=== PATIENT | male | born 1970 | race Caucasian/White ===

== ENCOUNTER 2023-10-15 12:32 | Inpatient (IN) ==
--- NOTE | 2023-10-15 13:15 | Emergency Department Note ---
Impression & Plan Suicidal ideation, Alcohol intoxication ED Provider Note Name: BERTA MCLAUGHLIN Age: 53 Sex: Male Arrives Via: Walk-In Informant: Patient, state police ED Provider: Brock Sagastume MD Chief Complaint: Suicidal ideation Impression: As per impressions above Medical Decision Makin-year-old gentleman arrives for evaluation of suicidal ideation. Patient without history of suicidal ideation nor significant depression. He does note that he has been on anxiety meds for some time. No previous mental health evaluations. Decided last night to kill himself due to trouble with his job. Per police there was a smell of alcohol in the car but they felt he was relatively sober. On my evaluation patient appears very sober he is awake alert oriented other than a bit of a noncongruent mood for his statements. Medical workup does reveal a significantly elevated alcohol at 300. Patient is stating he did drink since last night though I suspect he is not being fully truthful about that. Other electrolytes are unremarkable. LFTs look good. He is adamant he has not attempted to harm self. Medically other than being intoxicated he is clear. Patient is otherwise breathing comfortably no distress and stable throughout stay. Signed out to Dr Olivarez pending medical clearance and mental health evaluation. Triage/Nursing Notes reviewed by Me Differential:Mood disorder, infection, hypoglycemia, electrolyte abnormalities, cardiac sources, intracerebral event, toxicologic, trauma, neurologic, as well as other pathologies. Vital Signs: reviewed and remarkable for no significant abnormalities Labs:ED labs Reviewed by me and remarkable for +etoh Consults:Mental Health Case Management: They agree that given patient's statement there is high concern for suicide risk however given his intoxication will need to continue monitoring in ER until he is fully sober and repeat evaluation can be done Plan: Disposition: Signed out to Dr Olivarez. Condition: Good History of Present Illness: 53-year-old male arrives for evaluation of suicidal ideation. Patient states that he plans to kill himself. 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 He states he started a new job about 3 months ago and has become increasingly depressed since then. He admits that over the last few weeks he has been drinking more alcohol but no overt withdrawal symptoms nor is he had an alcohol in the last 24 hours. Last evening he told his and child that he plans to kill himself. He got in the car and drove off. States he was driving through the evening until this morning when [facility] police pulled him over. Apparently they had noted his license plate was that of a missing person. Patient admitted to police he is planning on killing himself. Patient states he is on his way to [place] to say goodbye to his parents and brother before he tells himself. He states he does not have a plan quite yet. He states he is never thought of harming himself before. Denies any significant depression issues previously but has been dealing with anxiety over the last few years. Had been placed on Zoloft a few years ago but does not feel it really helps much thus I do increase the dose a bit 12 months ago without much improvement either. Patient denies any drug use. Has not been taking any supplements. He takes no other medications on a daily basis besides the Zoloft. He has no recent headache head injuries or falls. He is not having any other medical complaints denying any chest pain shortness of breath or any other concerning signs or symptoms. Past Medical History:anxiety. No previous surgeries. Daily etoh use, denies withdrawal symptoms if going without several days. No drug use. Home Medications:Zoloft Allergies:none Vitals:Blood Pressure: 144/85, Pulse 93, RR 16, T 36.7C, O2 97% on RA Physical Exam: GENERAL: Patient is well appearing and in minimal distress. RESPIRATORY: No dyspnea. Clear to auscultation and equal bilaterally. CARDIOVASCULAR: Regular rate and rhythm.No murmur appreciated. GASTROINTESTINAL: Abdomen soft, non-tender, no peritonitis. EXTREMITIES: Normal motion all extremities, no cyanosis, no edema. NEUROLOGIC: Alert and oriented. No focal neurologic deficits appreciated SKIN: No rash, no jaundice, no diaphoresis. PSYCH: Patient is interactive calm and somewhat incongruent with his statements. Clearly states his plan is to kill himself though how has not been determined. Denies hallucinations. Denies thoughts of harm of others. GCS: 15 ED Course: Times/Reassessments: Patient is stable throughout stay. Brock Sagastume MD Past Med/Surg History Social History Smoking Status: Never smoker Preferred Language: Japanese Feels Safe at Home: Yes Allergies Allergies Allergy/AdvReac Type Severity Reaction Status Date / Time No Known Allergies Allergy Unverified 10/15/23 13:05 Home Meds Home Medications Medication Instructions Recorded Confirmed sertraline 50 mg tablet (Zoloft) 75 mg PO DAILY 10/15/23 10/15/23 Results & Data (ED) Vital Signs Vital Signs - 24 hr 10/15/23 12:49 10/15/23 14:30 Temperature 36.7 C Temperature Source Oral Pulse Rate 93 H Pulse Rate [Right Finger] 92 H Pulse Rhythm Regular Pulse Rhythm [Right Finger] Regular Pulse Strength Normal Pulse Strength [Right Finger] Normal Respiratory Rate 16 18 Respiratory Effort / Characteristics Non-Labored Spontaneous Non-Labored Spontaneous Respiratory Depth Normal Normal Respiratory Pattern Regular Regular Blood Pressure 144/85 H Blood Pressure [Right Arm] 135/75 Blood Pressure Mean 104 Blood Pressure Mean [Right Arm] 95 Blood Pressure Position Sitting Blood Pressure Position [Right Arm] Sitting Pulse Oximetry 97 95 Oxygen Delivery Method Room Air Room Air Sepsis Recent Fever Within 48 Hours No Sepsis New/Unexplained Change in Mental Status N/A Sepsis Action Taken by Nursing No Action Required Laboratory Data 10/15/23 13:05 10/15/23 13:05 Lab Results 10/15/23 10/15/23 10/15/23 Range/Units 12:55 13:05 13:10 WBC 6.29 (4.8-10.8) K/ul RBC 5.55 (4.70-6.10) M/uL Hgb 17.4 (14.0-18.0) g/dl Hct 51.1 (42.0-52.0) % MCV 92.1 (80.0-100.0) fL MCH 31.4 (25.0-34.0) pg MCHC 34.1 (32.0-36.0) g/dL RDW Std Deviation 44.8 (36.4-46.3) fL RDW Coeff of Seble 13.2 (11.5-14.5) % Plt Count 230 (130-400) K/uL MPV 9.4 (9.4-12.4) fL Immature Gran % (Auto) 0.5 % Neut % (Auto) 57.3 % Lymph % (Auto) 35.9 % Glenn % (Auto) 4.3 % Eos % (Auto) 1.4 % Baso % (Auto) 0.6 % Neut # (Auto) 3.60 (1.40-6.50) K/uL Lymph # (Auto) 2.26 (1.20-3.40) K/uL Glenn # (Auto) 0.27 (0.11-0.59) K/uL Eos # (Auto) 0.09 (0.00-0.50) K/uL Baso # (Auto) 0.04 (0.00-0.20) K/uL Immature Gran # (Auto) 0.03 (0.01-0.20) K/uL Sodium 144 (136-145) mmol/L Potassium 3.9 (3.5-5.1) mmol/L Chloride 105 (98-107) mmol/L Carbon Dioxide 28 (21-32) mmol/L Anion Gap 11 (3-11) BUN 16 (6-23) mg/dl Creatinine 1.06 (0.6-1.4) mg/dl Est Cr Clr Drug Dosing 78.0 ml/min Est GFR ( Amer) 92.4 ml/min Est GFR (Non-Af Amer) 79.7 ml/min BUN/Creatinine Ratio 15.1 (10-20) Glucose 106 H (70-99(Fasting)) mg/dl Calcium 9.4 (8.6-10.3) mg/dl Total Bilirubin 0.4 (0.2-1.0) mg/dl AST 33 (13-39) U/L ALT 18 (7-52) U/L Alkaline Phosphatase 55 (34-104) U/L Total Protein 7.8 (6.0-8.3) gm/dl Albumin 4.8 (3.4-5.0) gm/dl Globulin 3.0 (2.5-4.0) gm/dl Albumin/Globulin Ratio 1.6 (0.9-2) TSH 0.439 (0.300-4.500) uIu/ml Urine Color Yellow Urine Appearance Clear (Clear) Urine pH 6.0 (4.5-7.5) Ur Specific Farner 1.010 (1.000-1.030) Urine Protein Negative (Negative) Urine Glucose (UA) Negative (Negative) Urine Ketones Negative (Negative) Urine Blood Trace-intact H (Negative) Urine Nitrite Negative (Negative) Urine Bilirubin Negative (Negative) Urine Urobilinogen Negative (Negative) Ur Leukocyte Esterase Negative (Negative) Urine RBC 0-4 (0-4) /hpf Urine WBC 0-5 (0-5) /hpf Ur Epithelial Cells 0-5 (0-5) /lpf Urine Bacteria Negative (Negative) Salicylates < 3.0 L (3.0-30) mg/dl Urine Opiates Screen Neg (Neg) Ur Methadone, Qual Neg (Neg) Acetaminophen < 3 L (10-30) ug/ml Urine Barbiturates Neg (Neg) Ur Phencyclidine (PCP) Neg (Neg) U Amphetamin/Meth Scrn Neg (Neg) MDMA (Ecstasy) Screen Neg (Neg) U Benzodiazepines Scrn Neg (Neg) Ur Cocaine Metabolite Neg (Neg) U Marijuana (THC) Screen Neg (Neg) Ethyl Alcohol mg/dL 305.2 H (<10.0) mg/dl SARS-CoV-2, RNA, NAAT NEGATIVE (NEGATIVE) Discharge Plan Visit Data Chief Complaint: Mental Health Evaluation Stated Complaint: 302/MENTAL HEALTH EVAL ED Provider: Brock Sagastume Discharge Problem: Suicidal ideation, Alcohol intoxication Forms Stand Alone Forms: [facility], Suicide Prevention Resources Prescriptions Prescriptions: No Action sertraline [Zoloft] 50 mg Tablet 75 mg PO DAILY Referrals Referrals: PCP,NO [Primary Care Provider] - Discharge Problem: Alcohol intoxication Qualifiers: Complication of substance-induced condition: uncomplicated Qualified Code(s): F 10920 - Alcohol use, unspecified with intoxication, uncomplicated
[2023-10-15 13:33] LABS: Basophils # (auto) 0.04 K/uL (0.00-0.20); Basophils % (auto) 0.6 %; Eosinophils # (auto) 0.09 K/uL (0.00-0.50); Eosinophils % (auto) 1.4 %; Hematocrit (blood only) 51.1 % (42.0-52.0); Hemoglobin 17.4 g/dl (14.0-18.0); Immature Granulocytes # (auto) 0.03 K/uL (0.01-0.20); Immature Granulocytes % (auto) 0.5 %; Lymphocytes # (auto) 2.26 K/uL (1.20-3.40); Lymphocytes % (auto) 35.9 %; Mean Corpuscular Hemoglobin 31.4 pg (25.0-34.0); Mean Corpuscular Hgb Conc 34.1 g/dL (32.0-36.0); Mean Corpuscular Volume 92.1 fL (80.0-100.0); Mean Platelet Volume 9.4 fL (9.4-12.4); Monocytes # (auto) 0.27 K/uL (0.11-0.59); Monocytes % (auto) 4.3 %; Neutrophils % (auto) 57.3 %; Platelet Count 230 K/uL (130-400); RDW Coefficient of Variation 13.2 % (11.5-14.5); RDW Standard Deviation 44.8 fL (36.4-46.3); Red Blood Count 5.55 M/uL (4.70-6.10); White Blood Count 6.29 K/ul (4.8-10.8)
[2023-10-15 13:34] LABS: Appearance Urine Clear (Clear); Bilirubin Urine Negative (Negative); Blood Urine Trace-intact (Negative); Color Urine Yellow; Glucose Urine UA Negative (Negative); Ketones Urine Negative (Negative); Leukocyte Esterase Urine Negative (Negative); Nitrite Urine Negative (Negative); Protein Urine Negative (Negative); Urobilinogen Urine Negative (Negative)
[2023-10-15 13:46] LABS: Amphetamines+Metham, Urine Neg (Neg); Barbiturates, Urine Neg (Neg); Benzodiazepine, Urine Neg (Neg); Cocaine, Urine Neg (Neg); MDMA (Ecstacy), Urine Neg (Neg); Marijuana, Urine Neg (Neg); Methadone, Urine Neg (Neg); Opiate, Urine Neg (Neg); Phencyclidine, Urine Neg (Neg)
[2023-10-15 13:48] LABS: Acetaminophen < 3 ug/ml (10-30); Salicylate < 3.0 mg/dl (3.0-30)
[2023-10-15 13:51] LABS: Albumin Globulin Ratio 1.6 (0.9-2); Albumin Level 4.8 gm/dl (3.4-5.0); BUN Creatinine Ratio 15.1 (10-20); Bilirubin,Total 0.4 mg/dl (0.2-1.0); Calcium 9.4 mg/dl (8.6-10.3); Est GFR (African American) 92.4 ml/min; Est GFR (Non-African American) 79.7 ml/min; Potassium 3.9 mmol/L (3.5-5.1); Total Protein 7.8 gm/dl (6.0-8.3)
[2023-10-15 13:56] LABS: Bacteria Urine Negative (Negative); Epithelial Cell Urine 0-5 /lpf (0-5); RBC Urine 0-4 /hpf (0-4); WBC Urine 0-5 /hpf (0-5)
[2023-10-15 14:03] LABS: Thyroid Stimulating Hormone 0.439 uIu/ml (0.300-4.500)
--- NOTE | 2023-10-15 15:41 | Emergency Department Note ---
ED Visit Note This patient was signed is read by Dr. Sagastume at shift change. The patient had been medically cleared with exception of having a blood alcohol of 305. he was observed for multiple hours while this came down he does have a 302 warrant and will be further evaluated when he is sober. He does have a very concerning history where he had a clear suicidal thoughts and was driving from [place] to the [place] to see his parents and say goodbye. When I saw him he is resting and cooperative. The plan with Dr. Sagastume was that the patient would be sober from an alcohol standpoint at 11 PM and will be further evaluated at that point. I think based on his history will need to be admitted for mental health help. The patient was signed out at shift change at 11:[address] Joyner will follow-up the psych rehabilitation case coordinator evaluation .
--- NOTE | 2023-10-16 06:56 | Emergency Department Note ---
ED Visit Note Date and Time: 10/15/23 6830 Interval History: Sign out received from Dr. Olivarez who reviewed details of the encounter. Patient was pending sobriety. Summary: Patient was re-evaluated at 0100. He was resting. The patient was sober was reevaluated by the psychiatric case managers. He is willing to admit himself voluntarily for inpatient psychiatric care. The patient has been accepted to [address]. .
[2023-10-16] MEDS ORDERED: ACETAMINOPHEN 325 MG TAB PO PRN (07:10)
[2023-10-16] MEDS ORDERED: ALUMINUM/MAGNESIUM SUSP 30 ML UDC PO PRN (07:10)
[2023-10-16] MEDS ORDERED: BISMUTH SUBSALICYLATE LIQD 236 ML PO PRN (07:10)
[2023-10-16] MEDS ORDERED: MAGNESIUM HYDROXIDE SUSP 30 ML UDC PO PRN (07:10)
[2023-10-16] MEDS ORDERED: hydrOXYzine HCl 25 MG TAB PO PRN ×2 (07:10)
[2023-10-16] MEDS ORDERED: SODIUM CHLORIDE 0.65% NA SOLN 45 ML (OCEAN) PRN (07:10)
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
[2023-10-16] MEDS ORDERED: NALTREXONE HCL 50 MG TAB PO ONE (16:45)
[2023-10-17] MEDS: NALTREXONE HCL 50 MG TAB PO SCH (08:59)
[2023-10-17] MEDS: SERTRALINE HCL 50 MG TABLET PO SCH (08:59)
--- NOTE | 2023-10-17 11:17 | Psychiatric Progress Note ---
Date of Service October 17, 2023 Impression / Recommendations Impression 53 y/o M with history of anxiety and alcohol use disorder who impulsively announce to his and parents that he was going to drive from [place] (near [place]) to [place] (near [place]) to say goodbye to his parents then kill himself, then turned off his cellphone. He was located in his car by police via his license plate and brought, highly intoxicated, to the ED. He told multiple clinicians of his plan to kill himself (though never had a plan for how he would complete suicide) both while intoxicated and after the alcohol would have cleared. Since he awoke today he has consistently been saying he is not feeling suicidal at all. He says that at no point has he been depressed. This presentation is somewhat confusing and could represent an adjustment disorder with disturbance of conduct, but the rapid and supposedly complete resolution is difficult to explain. 10/17/2023: Pt reports initial insomnia last night. He did not know he had PRN medication available so didn't request it. Discussed changing it to scheduled to ensure he gets it. No evidence of alcohol withdrawal symptoms has been seen, so AWSS monitoring can be stopped. 10/16/2023: I discussed with pt at some length why I would not expect sertraline to help with EMILE (although SSRIs are effective for panic, OCD, PTSD, and social anxiety, there is little evidence of benefit for EMILE) and that I wouldn't expect a 75 mg/day dose to be effective for anything. Discussed buspirone, which would need to be taken TID, could be added to sertraline, would need to be started at 5 mg TID and titrated to 15 mg TID. Also discussed duloxetine, which would need to be started at a low dose and titrated to a target of 60 mg/day. Cross- titration from sertraline would be necessary. In either case, very aggressive dose titration, which could be justifiable in the context of an inpatient setting, would take at least 3-4 days. He is not willing to remain that long. In that case, I told him, medication changes should be avoided until he's engaged in outpatient follow-up with a psychiatrist. Pt would like to be discharged today. Despite his avowed lack of any suicidal thoughts, the dramatic nature of recent events leads me to believe that would not be appropriate. With sufficient additional support, such as his 's flying here and driving back with him, discharge as early as tomorrow might be appropriate. (1) EMILE (generalized anxiety disorder): (2) Alcohol use disorder, moderate, dependence: Plan 10/17/2023: * continue sertraline 75 mg daily - prior to admission medication * stop AWSS monitoring * anticipate discharge tomorrow 10/17/2023: The patient was admitted to the [facility]) on q15 minute checks (behavioral with suicide precautions) for safe ty.The patient will participate in group, recreational, and milieu therapies and will be offered additional individual and family sessions as clinically appropriate. * continue sertraline 75 mg daily - prior to admission medication * continue monitoring for possible alcohol withdrawal using AWSS Inventory Assets Strengths: voluntary, intelligent, employed Needs: safety and stabilization, possible medication adjustment, additional coping skills, increased outpatient services (psychiatrist) Suicide Risk Level Suicide Risk Level: Moderate (q15 min suicide checks) (denies suicidal thoughts now but recently reported them) Risk Factors Assessment Male: Yes : Yes Do You Have Access To A Gun?: No Health Problems: No Mental Health Diagnoses: Yes Substance Use Disorders: Yes Previous Attempt: No Previous Psychiatric Hospitalization: No Hopelessness: No Protective Factors Assessment : Yes Responsible for Young Children: No (13 y/o daughter) 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 Chief Complaint "Didn't sleep so hot". Review of Systems Sleep Information Total Hours of Sleep: 7.75 Meal Information Percent Meal Consumed - Breakfast: 100 Percent Meal Consumed - Lunch: 100 Percent Meal Consumed - Dinner: 100 Subjective Subjective The patient was seen and assessed and interval progress reviewed in a multidisciplinary team meeting with the treatment team. For details, see the "Impression" section. Overall I spent a total of 28 minutes for this inpatient follow-up including review of chart records, direct evaluation of the patient [id number], counse ling the patient, reconciling and ordering medication, medication education with the patient, risk assessment, discussion during interdisciplinary treatment rounds, and documentation in the electronic health record. Physical Exam Psychiatric Orientation: alert, oriented to person, oriented to place, oriented to time and cooperative (seemingly) Apperance: appropriately dressed and appropriately groomed Eye Contact: good eye contact Motor Behavior: no abnormal motor movements Speech: normal rate/rhythm/volume of speech Affect: euthymic affect Mood: + dysphoric mood Thought Process: linear/logical thought process and thought association intact Thought Content: reality based without delusions Suicidal Thoughts: denies suicidal thoughts, denies suicidal plan and denies suicidal intent Homicidal Thoughts: denies homicidal thoughts Hallucinations: no auditory hallucinations and no visual hallucinations Cognition: recent memory grossly intact, remote memory grossly intact, attention grossly intact and language grossly intact Estimated Intelligence: consistent with education level Insight: + limited insight Judgment: + impaired judgement Vital Signs (Past 24 Hours) Last Vital Signs Temp 36.4 C L 10/17/23 06:29 Pulse 65 10/17/23 06:30 Resp 16 10/17/23 06:29 BP 151/89 H 10/17/23 06:30 Pulse Ox 99 10/16/23 08:22 O2 Del Method Room Air 10/16/23 21:03 Results & Data ([facility]) Current Inpatient Medications Current Inpatient Medications: Current Inpatient Medications Acetaminophen (Acetaminophen 325 Mg Tab) 650 mg PO Q4H PRN PRN Reason: Headache or Minor Fever Stop: 11/15/23 07:09 Al Hydrox/Mg Hydrox/Simethicone (Aluminum/Magnesium Susp 30 Ml Udc) 30 ml PO Q4H PRN PRN Reason: GI Upset Stop: 11/15/23 07:09 Bismuth Subsalicylate (Bismuth Subsalicylate Liqd 236 Ml) 15 ml PO PRN PRN PRN Reason: Loose Stool Stop: 11/15/23 07:09 Hydroxyzine HCl (Hydroxyzine Hcl 25 Mg Tab) 50 mg PO HSZ PRN PRN Reason: Insomnia Stop: 11/15/23 07:09 Hydroxyzine HCl (Hydroxyzine Hcl 25 Mg Tab) 25 mg PO Q4H PRN PRN Reason: Anxiety Stop: 11/15/23 07:09 Magnesium Hydroxide (Magnesium Hydroxide Susp 30 Ml Udc) 30 ml PO DAILY PRN PRN Reason: Constipation Stop: 11/15/23 07:09 Naltrexone HCl (Naltrexone Hcl 50 Mg Tab) 50 mg PO DAILY NORM Stop: 11/16/23 08:59 Last Admin: 10/17/23 08:59 Dose: 50 mg Sertraline HCl (Sertraline Hcl 50 Mg Tablet) 75 mg PO DAILY NORM Stop: 11/16/23 08:59 Last Admin: 10/17/23 08:59 Dose: 75 mg Sodium Chloride (Sodium Chloride 0.65% Na Soln 45 Ml ([place])) 1 - 2 sprays NA PRN PRN PRN Reason: Nasal Dryness/Congestion Stop: 11/15/23 07:09 Mental Health & Subst Abuse Tx Therapist Name of Therapist: None Campus Monitor Name of Campus Monitor: None Post Discharge Appointments Primary Care Physician Name Of Family Doctor/PCP: Diallo Jurado Primary Care Provider Appointment Comment: [address] [place] [id number]
[2023-10-18] MEDS: SERTRALINE HCL 50 MG TABLET PO SCH (08:34)
[2023-10-18] MEDS: NALTREXONE HCL 50 MG TAB PO SCH (08:34)
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
== END 2023-10-18 12:50 | disposition home or self-care (01) | DRG 880 ==
LOC: ED 12:32 → 3S 10-16 07:10